=== PATIENT | female | born 1990 | race Caucasian/White ===

== ENCOUNTER → 2018-10-03 | Outpatient (CLI) | payer BC ==
--- NOTE | 2018-10-03 15:13 | RADIOLOGY REPORT (SQ) ---
EXAM DESCRIPTION: HYSTEROSALPINGOGRAM; HYSTERO CATH/INJECTION COMPLETED DATE/TIME: 10/03/2018 2:14 pm REASON FOR STUDY: N97.9 FEMALE INFERTILITY, UNSPECIFIED N97.9 FEMALE INFERTILITY, UNSPECIFIED COMPARISON: None. PROCEDURE: PRE-PROCEDURE: Procedure was explained to the patient. She was told to expect cramping du ring the procedure, and possible spotting post procedure. PROCEDURE: The cervix was prepped in sterile fashion. Under direct visual inspection, the cervix was cannulated with the hysterosalpingogram catheter and contrast injected. TECHNIQUE: Temporal fluoroscopic images acquired during the procedure stored to PACS. FLUOROSCOPY TIME: 47 seconds 7 images saved to PACS. LIMITATIONS: None. FINDINGS: Considerable gentle manipulation was required to position the catheter through the cervica l os. Normal filling of the uterus. No uterine anomaly. There was prompt filling of the left fallo pian tube with normal spill. Right fallopian tube is occluded. POST PROCEDURE: The patient tolerated the procedure with no adverse effects. IMPRESSION: Occluded right fallopian tube. COMMENT: Quality ID 145: Final reports for procedures using fluoroscopy that document radiation exp osure indices, or exposure time and number of fluorographic images (if radiation exposure indices are not available) TECHNICAL DOCUMENTATION: JOB ID: [id number] [employer]- All Rights Reserved Reading location - IP/workstation name: [email or web address]
== END ==
LOC: RAD 12:53
PROVIDERS: ATTEND Student in an Organized Health Care Education/Training Program
DX: N97.9 Female infertility, unspecified (principal)
CPT/HCPCS: 58340; 74740

== ENCOUNTER 2019-01-13 07:45 | Day surgery (SDC) | payer BC ==
[~2019-01-13 07:45] MED LIST: DEXAMETHASONE SOD PHOSPHATE INJ 4 MG/1 ML VIAL ONE; FENTANYL CITRATE INJ/PF 100 MCG/2 ML AMPUL ONE; LIDOCAINE 0.5% INJ-PF (5 MG/ML) 50 ML SDV ONE; MIDAZOLAM 2 MG/2 ML INJ ONE; ONDANSETRON HCL INJ/PF 4 MG/2 ML SDV ONE; PROPOFOL INJ 200 MG/20 ML VIAL IV ONE; SUGAMMADEX SODIUM 200 MG/2 ML SDV IV ONE
[2019-01-13 08:14] LABS: HEMATOCRIT 43.4 % (36.0-47.0); HEMOGLOBIN 14.7 g/dL (12.0-15.5); MEAN CORPUSCULAR HEMOGLOBIN 28.1 pg (27.0-33.4); MEAN CORPUSCULAR HGB CONC 33.9 g/dL (32.0-36.0); MEAN CORPUSCULAR VOLUME 83 fl (80-97); PLATELET COUNT 306 10^3/uL (150-450); RED BLOOD COUNT 5.24 10^6/uL (3.72-5.28); RED CELL DISTRIBUTION WIDTH 13.1 % (11.5-14.0); WHITE BLOOD COUNT 8.8 10^3/uL (4.0-10.5)
[2019-01-13 08:18] LABS: APPEARANCE,URINE SLIGHTLY-CLOUDY; BILIRUBIN,URINE NEGATIVE (NEGATIVE); COLOR,URINE YELLOW; GLUCOSE, URINE NEGATIVE (NEGATIVE); KETONES,URINE NEGATIVE (NEGATIVE); LEUKOCYTE ESTERASE,URINE NEGATIVE (NEGATIVE); NITRITE,URINE NEGATIVE (NEGATIVE); PROTEIN,URINE NEGATIVE (NEGATIVE); URINE SPECIFIC GRAVITY 1.025; UROBILINOGEN,URINE NEGATIVE mg/dL (<2.0)
[2019-01-13] MEDS ORDERED: BUPIVACAINE HCL 0.25 % INJ/PF (2.5 MG/1 ML) 30 ML VIAL ONE (09:22)
[2019-01-13] MEDS ORDERED: METHYLENE BLUE 50 MG/10 ML AMPULE ONE (10:05)
[2019-01-13] MEDS ORDERED: DIPHENHYDRAMINE HCL 50 MG/ML VIAL IV PRN (10:10)
[2019-01-13] MEDS ORDERED: FENTANYL CITRATE INJ/PF 100 MCG/2 ML AMPUL IV PRN ×3 (10:10)
[2019-01-13] MEDS ORDERED: ONDANSETRON HCL INJ/PF 4 MG/2 ML SDV IV PRN (10:10)
[2019-01-13] MEDS ORDERED: PROMETHAZINE HCL INJ 25 MG/1 ML VIAL IV PRN ×2 (10:10)
[2019-01-13] MEDS ORDERED: MEPERIDINE HCL/PF INJ 25 MG/1 ML DISP.SYRIN IV PRN (10:10)
[2019-01-13] MEDS ORDERED: MORPHINE SULFATE 10 MG/ML INJ IV PRN (10:10)
[2019-01-13 10:39] LABS: CHLAM PCR NOT DETECTED (NOT DETECT)
[2019-01-13] MEDS ORDERED: KETOROLAC TROMETHAMINE INJ/PF 30 MG/1 ML SDV ONE (11:34)
[2019-01-13] MEDS ORDERED: MORPHINE SULFATE 10 MG/ML INJ ONE (11:34)
[2019-01-13] MEDS: FENTANYL CITRATE INJ/PF 100 MCG/2 ML AMPUL ONE ×4 (11:35→12:30)
[2019-01-13] MEDS ORDERED: IBUPROFEN 800 MG TABLET PO PRN (12:00)
[2019-01-13] MEDS ORDERED: OXYCODONE-ACETAMINOPHEN 5-325 MG TABLET PO PRN ×2 (12:00)
[2019-01-13] MEDS ORDERED: RINGERS SOLUTION,LACTATED 1,000 ML IV PRN (12:00)
[2019-01-13] MEDS ORDERED: ACETAMINOPHEN 1,000 MG/100 ML RTUPB IV ONE (12:01)
[2019-01-13] MEDS: LORAZEPAM INJ 2 MG/1 ML VIAL ONE ×2 (12:10→12:25)
[2019-01-13] MEDS ORDERED: ONDANSETRON HCL INJ/PF 4 MG/2 ML SDV ONE (13:07)
[2019-01-13] MEDS ORDERED: OXYCODONE-ACETAMINOPHEN 5-325 MG TABLET ONE (13:38)
[2019-01-13] MEDS ORDERED: RINGERS SOLUTION,LACTATED 500 ML IV ONE (16:30)
[2019-01-13 17:07] VITALS: BP 116/74
--- NOTE | 2019-02-05 07:22 | Operative Report ---
Operative Report DATE OF SURGERY: 01/13/19 PREOPERATIVE DIAGNOSIS: Right Adnexal Cyst (suspect ovarian on ultrasound) POSTOPERATIVE DIAGNOSIS: Right Paratubal cyst with fallopian tube torsion OPERATION: EUA, Operative Laparoscopy with untorsion of right fallopian tube and removal of Right paratubal cyst, Chromopertubation SURGEON: MARILU CORONADO ANESTHESIA: GA TISSUE REMOVED OR ALTERED: paratubal cyst COMPLICATIONS: None ESTIMATED BLOOD LOSS: less than 10ml INTRAOPERATIVE FINDINGS: 6wks AV uterus with right adnexal mass palpable on exam. On Laparoscopy Normal appearing uterus, left ovary normal left tube possibly somewhat blunted. Right ovary normal. Right fallopian tube thickened distally with 4cm simple appearing paratubal cyst at distal portion of fallopian tube causing the fallopian tube to be torsed distal to the ovary 5 times. The fallopian tube was untorsed and paratubal cyst was removed. Chromopertubation with bilateral fill and spill but slow on the patients right. PROCEDURE: Anesthesiologist: Dc PIERRE, Jose CHAPMAN IV fluids: [1400ml] Urine output: [225ml] Indications: [28yo with right adnexal pain since 01/10. She reports that since being seen on 01/11/[address] Gonsales that her pain has worsened. US on 01/11 demonstrated approximately 4cm likely right ovarian or paraovarian cyst. Since pain had significantly worsened on 01/12 repeat US was done and no evidence of torsion with good blood flow to the ovary was noted. The risks, benefits, alternatives were reviewed and she desires to proceed with planned procedure for Operative Laparoscopy with removal of adnexal mass.] Procedure: The patient was taken to the operating room where general anesthesia was obtained without difficulty. The patient was then examined under anesthesia with findings as noted above with a small anteverted uterus and possible right adnexal mass. She was then placed in dorsal supine lithotomy position and prepped and draped in the normal sterile fashion. Adel speculum was then placed in the patient's vagina and the anterior lip of the cervix grasped with a single-tooth tenaculum. A humi uterine manipulator was then advanced into the uterus to provide a means of manipulation of the uterus. The speculum and tenaculum were then removed from the patient's cervix and vagina. Attention was then turned to the patient's abdomen where a 5 mm infraumbilical skin incision was then made. The Optiview trocar with 0 laparoscope was then advanced without difficulty under direct visualization with the Optiview trocar. This was performed while tenting the abdominal wall and these will fashion. Intraperitoneal placement was confirmed by the direct visualization. Pneumoperitoneum was then obtained with approximately 4 L carbon dioxide gas. Survey of the patient's abdomen and pelvis revealed findings as noted above. A second skin incision was then made approximately 3 cm superior 4 cm medial to the anterior superior iliac spine on the left and then a third skin incision was made approximately 3 cm superior to the lower incision. These incisions were made under direct visualization with the laparoscope. The second and third trochars were then advanced under direct visualization of the laparoscope at the sites. The right fallopian tube and paratubal cyst was identified and untorsed in the usual manner. At this time chromopertubation was performed to evaluate the patency of the bilateral fallopian tubes. Bilateral fill and spill noted with sluggish on the right. Since the right fallopian tube appeared patent and patient has a desire for future fertility decision was made to remove paratubal cyst only. The right paratubal cyst was carefully dissected intact from the underside of the right fallopian tube. Surgicel was placed under the fallopian tube at site of removal of paratubal cyst. Chromopertubation was repeated with bilateral fill and spill (improved speed of spill on the right). The umbilical site was extended to accomodate removal of paratubal cyts in an endobag. All operative sites were visualized and noted to be hemostatic. The 2 additional trochars on the patient's left greater than removed under direct visualization. The 10 mm trocar was then removed after abdominal insufflation was removed. The fascia at the umbilical 10 mm trocar site was closed with 0 Vicryl on a UR 6 needle. The skin at all trocar sites were closed with 3-0 Monocryl in a subcuticular fashion with overlying Dermabond.
== END 2019-01-13 16:40 | disposition home or self-care (01) ==
LOC: OROUT 07:45
PROVIDERS: ATTEND Student in an Organized Health Care Education/Training Program
DX: N83.8 Other noninflammatory disorders of ovary, fallopian tube and broad ligament (principal); N83.521 Torsion of right fallopian tube; F17.210 Nicotine dependence, cigarettes, uncomplicated; R10.2 Pelvic and perineal pain; N97.9 Female infertility, unspecified; Z79.84 Long term (current) use of oral hypoglycemic drugs; Z79.899 Other long term (current) drug therapy; Z32.02 Encounter for pregnancy test, result negative; N83.291 Other ovarian cyst, right side; Z88.5 Allergy status to narcotic agent
CPT/HCPCS: 36415; 84702; 85027; 81001; 87491; 87591; 88305 ×2; 00840; 58350; 58662; J2250; J1100; J3010; J3490 ×2; J1885; J2270; J2060; J2405; J2704; J0131; Q9968; 840

== ENCOUNTER → 2019-04-27 | Outpatient (CLI) | payer BC ==
--- NOTE | 2019-04-27 14:52 | RADIOLOGY REPORT (SQ) ---
EXAM DESCRIPTION: HYSTEROSALPINGOGRAM; HYSTERO CATH/INJECTION COMPLETED DATE/TIME: 04/27/2019 2:25 pm REASON FOR STUDY: N97.9 FEMALE INFERTILITY, UNSPECIFIED N97.9 FEMALE INFERTILITY, UNSPECIFIED COMPARISON: Hysterosalpingogram 10/03/2018 PROCEDURE: PRE-PROCEDURE: Procedure was explained to the patient. She was told to expect cramping du ring the procedure, and possible spotting post procedure. PROCEDURE: The cervix was prepped in sterile fashion. Under direct visual inspection, the cervix was cannulated with the hysterosalpingogram catheter and contrast injected. TECHNIQUE: Temporal fluoroscopic images acquired during the procedure stored to PACS. FLUOROSCOPY TIME: Less than 5 seconds 14 digital fluoroscopic images saved to PACS. LIMITATIONS: None. FINDINGS: UTERUS: No identified anomalies. No synechia. RIGHT ADNEXA: Normal size fallopian tube. Free spill of contrast into the peritoneal cavity. LEFT ADNEXA: Normal size fallopian tube. Free spill of contrast into the peritoneal cavity. POST PROCEDURE: The patient tolerated the procedure with no adverse effects. IMPRESSION: NORMAL HYSTEROSALPINGOGRAM. COMMENT: Study performed by and interpreted by the radiologist. Study performed by MANAGER [employer] physician. Supervision and interpretation by the radiologist. Quality ID 145: Final reports for procedures using fluoroscopy that document radiation exposure constantine zeynep, or exposure time and number of fluorographic images (if radiation exposure indices are not avail able) TECHNICAL DOCUMENTATION: JOB ID: [id number] [employer]- All Rights Reserved Reading location - IP/workstation name: [email or web address]
--- NOTE | 2019-04-27 14:52 | RADIOLOGY REPORT (SQ) ---
EXAM DESCRIPTION: HYSTEROSALPINGOGRAM; HYSTERO CATH/INJECTION COMPLETED DATE/TIME: 04/27/2019 2:25 pm REASON FOR STUDY: N97.9 FEMALE INFERTILITY, UNSPECIFIED N97.9 FEMALE INFERTILITY, UNSPECIFIED COMPARISON: Hysterosalpingogram 10/03/2018 PROCEDURE: PRE-PROCEDURE: Procedure was explained to the patient. She was told to expect cramping du ring the procedure, and possible spotting post procedure. PROCEDURE: The cervix was prepped in sterile fashion. Under direct visual inspection, the cervix was cannulated with the hysterosalpingogram catheter and contrast injected. TECHNIQUE: Temporal fluoroscopic images acquired during the procedure stored to PACS. FLUOROSCOPY TIME: Less than 5 seconds 14 digital fluoroscopic images saved to PACS. LIMITATIONS: None. FINDINGS: UTERUS: No identified anomalies. No synechia. RIGHT ADNEXA: Normal size fallopian tube. Free spill of contrast into the peritoneal cavity. LEFT ADNEXA: Normal size fallopian tube. Free spill of contrast into the peritoneal cavity. POST PROCEDURE: The patient tolerated the procedure with no adverse effects. IMPRESSION: NORMAL HYSTEROSALPINGOGRAM. COMMENT: Study performed by and interpreted by the radiologist. Study performed by [employer] physician. Supervision and interpretation by the radiologist. Quality ID 145: Final reports for procedures using fluoroscopy that document radiation exposure constantine zeynep, or exposure time and number of fluorographic images (if radiation exposure indices are not avail able) TECHNICAL DOCUMENTATION: JOB ID: [id number] [employer]- All Rights Reserved Reading location - IP/workstation name: [email or web address]
== END ==
LOC: RAD 13:43
PROVIDERS: ATTEND Student in an Organized Health Care Education/Training Program
DX: N97.9 Female infertility, unspecified (principal)
CPT/HCPCS: 58340; 74740